=== PATIENT | female | born 1945 ===

== ENCOUNTER 2018-01-14 06:31 | Day surgery (SDC) | payer OTHER ==
[~2018-01-14 06:31] MED LIST: PREVACID30 MG/BLIS; ZANTAC300 MG
== END 2018-01-14 10:55 | disposition home or self-care (01) ==
LOC: AMB-ENDOS 06:31
DX: K57.32 Diverticulitis of large intestine without perforation or abscess without bleeding (principal); K64.0 First degree hemorrhoids; I10 Essential (primary) hypertension; D64.89 Other specified anemias